=== PATIENT | female | born 1995 | race African-American/Black ===

== ENCOUNTER 2017-04-11 21:43 | Emergency (ER) | payer SELFPAY ==
[~2017-04-11] VITALS: Ht 157.5 cm; Wt 53.5 kg
[2017-04-11] MEDS ORDERED: OSELB75 PO (23:11)
== END 2017-04-11 23:45 | disposition home or self-care (01) ==
LOC: ER 21:43
DX: R50.9 Fever, unspecified (principal); J02.9 Acute pharyngitis, unspecified; M79.1 Myalgia; H92.09 Otalgia, unspecified ear

== ENCOUNTER 2017-09-06 01:01 | Emergency (ER) | payer OTHER ==
[~2017-09-06] VITALS: Ht 160 cm; Wt 53.5 kg
--- NOTE | ~2017-09-06 | EKG ---
[place] [address] [place] [address] ELECTROCARDIOGRAM REPORT Name: CLIFFORD KONG Room #: DEP Elda#: [id number] Admission: 09/06/17 Attend Phys: Discharge: 09/06/17 Date of : [birth year] Report #: [id number] THIS REPORT FOR: //name// [facility] ED Test Date: 2017-09-06 Test Time: 01:10:46 Pat Name: CLIFFORD KONG Department: Room: Gender: F Coding Compliance Specialist: Irais NEUMANN : 1995 Requested By: Regulo Angel Order Number: [id number] MD: Conrado Oseguera Measurements Intervals [place] Rate: 99 P: 69 [place]: 144 QRS: 100 QRSD: 85 T: 36 QT: 348 QTc: 447 Interpretive Statements Sinus rhythm Borderline right axis deviation No previous ECG available for comparison Electronically Signed On 09-06-2017 8:01:54 CDT by Conrado Oseguera [email or web address] <ELECTRONICALLY SIGNED> By: Conrado Oseguera MD, [facility] 09/06/17 0801 0110 [id number] Conrado Oseguera MD, FACC /EPI
[~2017-09-06 01:01] MED LIST: OSELB75 PO
[2017-09-06 02:53] VITALS: BP 126/74
== END 2017-09-06 02:54 | disposition home or self-care (01) ==
LOC: ER 01:01
DX: R07.9 Chest pain, unspecified (principal); R00.2 Palpitations; F41.9 Anxiety disorder, unspecified; R06.02 Shortness of breath